=== PATIENT | female | born 1990 | race Caucasian/White ===

== ENCOUNTER 2017-05-15 13:46 | Emergency (ER) | payer MEDICAID, OTHER ==
[~2017-05-15] VITALS: Ht 172.7 cm; Wt 97.3 kg
[~2017-05-15 13:46] MED LIST: ONDA1TAB16 PO; TYLE3 PO; Z.0.NO CURRENT MEDS
[2017-05-15 13:51] VITALS: BP 151/103; PULSE 71; RESP 16; TEMP 98.9; O2SAT 99
[2017-05-15] MEDS ORDERED: KETOROLAC TROMETHAMINE 60 MG/2 ML (IM) VIAL IM ONE (14:00)
--- NOTE | 2017-05-15 14:01 | PD ---
HPI Chief Complaint: Oral / Dental Pain or Problem Time Seen by Provider: 13:57 Travel History International Travel<30 days: No Contact w/Intl Traveler<30days: No Traveled to known affect area: No History of Present Illness HPI 27-year-old female patient seen department for evaluation of dental pain 1 day. Long-standing history of dental decay and abscesses. She reports yesterday she developed pain within the left front incisor. She denies fever or chills. She reports mild gum and facial swelling. She reports the pain is constant, worse with eating and drinking, no alleviating factors, severity 7 out of 10. PFSH Past Medical History Asthma: Yes Anxiety: Yes Diminished Hearing: No Immunizations Current: Yes Tetanus Vaccination: Unknown Influenza Vaccination: Yes ?: Not LMP: NOW : 4 Para: 3 Miscarriage: 1 Past Surgical History Section: Yes (X3) Ear Surgery: Yes (BILATERAL EAR TUBES CHILD) Oral Surgery: Yes (TEETH EXTRACTION/ADENOID REMOVAL) Tonsillectomy: Yes Other Surgery: Yes (IUD) Social History Alcohol Use: No Tobacco Use: Yes (1 PPD) Substance Use: Yes (Marijuana - Occ ) Allergies-Medications (Allergen,Severity, Reaction): Coded Allergies: No Known Allergies (Verified , 05/15/17) Reported Meds & Prescriptions Reported Meds & Active Scripts Active Ibuprofen 800 Mg Tab 800 Mg PO Q8H PRN Augmentin (Amoxicillin-Clavulanate) 875-125 Mg Tab 1 Tab PO BID Review of Systems Except as stated in HPI: all other systems reviewed are Neg General / Constitutional: No: Fever Eyes: No: Visual changes HENT: No: Headaches Cardiovascular: No: Chest Pain or Discomfort Respiratory: No: Shortness of Breath Gastrointestinal: No: Abdominal Pain Physical Exam Narrative GENERAL: Well-nourished, well-developed patient. SKIN: Focused skin assessment warm/dry. HEAD: Normocephalic. EYES: No scleral icterus. No injection or drainage. MOUTH: Widespread dental decay. Tooth #9 decayed with surrounding gum erythema and mild swelling. NECK: Supple, trachea midline. No JVD or lymphadenopathy. No meningismus. CARDIOVASCULAR: Regular rate and rhythm without murmurs, gallops, or rubs. RESPIRATORY: Breath sounds equal bilaterally. No accessory muscle use. Data Data Last Documented VS Vital Signs Date Time Temp Pulse Resp B/P Pulse Ox O2 Delivery O2 Flow Rate FiO2 05/15/17 13:51 98.9 71 16 151/103 99 Orders Ketorolac Inj (Toradol Inj) (05/15/17 14:00) MDM Medical Decision Making Medical Screen Exam Complete: Yes Emergency Medical Condition: Yes Differential Diagnosis Physical abscess, dental caries, periodontal disease Narrative Course 27-year-old female with 1 day history of dental pain. On exam patient has widespread dental decay tooth #9 is decayed with surrounding gum erythema. Patient be treated for dental abscess. Diagnosis Primary Impression: Dental abscess Referrals: Dentist Additional Instructions: Make an appointment with the dentist for follow-up. Take antibiotics as prescribed. Return to the emergency department if you develop fever, chills, increased facial swelling. Scripts Chlorhexidine Gluconate (Mouth) Liq (Peridex Liq)0.12% Soln15 Ml SWISH-SPIT BID #473 ML Ref 0 Prov:Rhea Ortega 05/15/17 Ibuprofen 800 Mg Glf950 Mg PO Q8H PRN (Pain/Inflammation) #30 TAB Prov:Rhea Ortega 05/15/17 Amoxicillin-Clavulanate (Augmentin)875-125 Mg Tab1 Tab PO BID #20 TAB Prov:Rhea Ortega 05/15/17 Disposition: 01 DISCHARGE HOME Condition: Stable Rhea Ortega May 15, 2017 14:01
[2017-05-15] MEDS ORDERED: IBUP800T23 PO (14:02)
[2017-05-15] MEDS ORDERED: AUGM875T3 PO (14:02)
[2017-05-15] MEDS ORDERED: PERI0.126 SWISH-SPIT (14:10)
== END 2017-05-15 14:30 | disposition home or self-care (01) ==
LOC: PHEFT 13:46
DX: K04.7 Periapical abscess without sinus (principal); F17.210 Nicotine dependence, cigarettes, uncomplicated
CPT/HCPCS: 96372; 99284; J1885

== ENCOUNTER 2017-09-30 05:04 | Emergency (ER) | payer OTHER ==
[~2017-09-30] VITALS: Ht 170.2 cm; Wt 100.0 kg
[~2017-09-30 05:04] MED LIST changes: +AUGM875T3 PO; +IBUP1TAB7 PO; -ONDA1TAB16 PO; +PERI0.126 SWISH-SPIT; -TYLE3 PO; -Z.0.NO CURRENT MEDS
[2017-09-30 05:07] VITALS: BP 142/62; PULSE 78; RESP 20; TEMP 98.2; O2SAT 100
[2017-09-30] MEDS ORDERED: KETOROLAC TROMETHAMINE 60 MG/2 ML (IM) VIAL IM ONE (05:15)
--- NOTE | 2017-09-30 05:17 | PD ---
HPI Chief Complaint: Injury Time Seen by Provider: 05:06 Travel History International Travel<30 days: No Contact w/Intl Traveler<30days: No Traveled to known affect area: No History of Present Illness HPI Patient comes in complaining of right foot pain after kicking a door 3 times last night with her foot. Patient states that her boyfriend came home 3 hours late as he was hanging out with friends and she got mad causing her to kick the door 3 times. Patient states she took some Tylenol last night however when she woke up this morning to go the bathroom she tried to put her foot on the floor had intense pain in the dorsal aspect of her foot that radiates proximally. Patient denies anything making it better. Denies any numbness or tingling. Patient denies . States that she thought she may have done yesterday because she felt nauseous but took a home test that was negative. PFSH Past Medical History Asthma: Yes Anxiety: Yes Diminished Hearing: No Immunizations Current: Yes ?: Not LMP: 08/31/17 : 4 Para: 3 Miscarriage: 1 Past Surgical History Section: Yes (X3) Ear Surgery: Yes (BILATERAL EAR TUBES CHILD) Oral Surgery: Yes (TEETH EXTRACTION/ADENOID REMOVAL) Tonsillectomy: Yes Other Surgery: Yes (IUD) Social History Alcohol Use: No Tobacco Use: Yes (1 PPD) Substance Use: Yes (Marijuana - Occ ) Allergies-Medications (Allergen,Severity, Reaction): Coded Allergies: No Known Allergies (Verified Adverse Reaction, Unknown, 09/30/17) Reported Meds & Prescriptions Reported Meds & Active Scripts Active Naprosyn (Naproxen) 500 Mg Tab 500 Mg PO Q12HR PRN Review of Systems Except as stated in HPI: all other systems reviewed are Neg Physical Exam Narrative GENERAL: Well-developed, overly nourished, in no acute distress, and non-ill appearing. SKIN: Focused skin assessment warm and dry. HEAD: Atraumatic. Normocephalic. EYES: Pupils equal and round. EOMI. No scleral icterus. No injection or drainage. ENT: No nasal bleeding or discharge. Mucous membranes pink and moist. NECK: Trachea midline. Supple. No nuclear rigidity. CARDIOVASCULAR: Dorsal pulses 2+, intact, equal bilaterally. Capillary refill less than 2 seconds. RESPIRATORY: No accessory muscle use. No respiratory distress. MUSCULOSKELETAL: No obvious deformities. No clubbing. No cyanosis. No edema. Full range of motion. Ankle: Neagative anterior draw and Santillan test. Negative Dianne's sign. No laxity noted with passive inversion and eversion of BL ankles. Negative squeeze test. Pulses equal BL distal to injury. Capillary refill less than 2 seconds distal to injury and equal BL. Sensation equal BL 1st web space. FROM of toes distal to injury and equal BL. NV intact distal to injury and equal BL. Dorsal pulses equal BL. Patient reports tenderness to dorsal aspect of right foot over area of minimal soft tissue swelling. There is no crepitus. NEUROLOGICAL: Awake and alert. No obvious cranial nerve deficits. Motor grossly within normal limits. Normal speech. PSYCHIATRIC: Appropriate mood and affect; insight and judgment normal. Data Data Last Documented VS Vital Signs Date Time Temp Pulse Resp B/P (MAP) Pulse Ox O2 Delivery O2 Flow Rate FiO2 09/30/17 05:07 98.2 78 20 142/62 (88) 100 Orders Orders Foot, Complete (Ngl0zar) (09/30/17 ) Ice/Cold Pack (09/30/17 05:06) Ketorolac Inj (Toradol Inj) (09/30/17 05:15) Ondansetron Odt (Zofran Odt) (09/30/17 05:30) Splint Or Brace Apply/Monitor (09/30/17 05:43) Ed Discharge Order (09/30/17 05:43) Shoe Cast (09/30/17 ) MDM Medical Decision Making Medical Screen Exam Complete: Yes Emergency Medical Condition: Yes Differential Diagnosis Fracture, strain, contusion, dislocation Narrative Course The patient appears to have suffered a contusion of the extremity. There is no clinical evidence to suspect bony injury by exam. Radiographic examination revealed no fracture seen at this time. The patient has full range of motion on active and passive motions. There is no significant edema. There is no proximal or distal joint effusion. The distal extremity appears neurovascularly intact, without evidence of neurovascular injury nor compartment syndrome. Tendon exam also was intact. The patient was discharged on pain medication instructions and given warnings for vascular compromise. The patient is to follow up with their regular physician or legal recruiter. The patient agrees with plan. Patient in no obvious distress upon re-evaluation. All pertinent Radiology result(s) discussed with patient. Patient was asked if they wanted to speak to my attending, which the patient did not wish to do at this time. Any questions/ concerns in reference to patient diagnosis/condition discussed and clarified prior to patient's discharge. Reinforced sheer importance of close follow up with patient's primary physician or primary care clinic and/or legal recruiter. Instructed patient to return to ED immediately, if symptoms return/worsen. Patient showed understanding of above instructions. Further instructions and recommendations were detailed in discharge paperwork. Patient ambulated without difficulty out of ED at discharge with crutches. Diagnosis Primary Impression: Contusion of right foot, initial encounter Patient Instructions: Contusion in Adults (ED), Crutch Instructions (ED), General Instructions, Splint Care (DC) Additional Instructions: Follow-up with your primary care physician and/or legal recruiter in 3-5 days for reevaluation. Take all medication as prescribed. Apply ice to affected area 20 minutes per hour as needed for pain. Elevate affected foot when possible to decrease pain. Use Luis A wrap and postop shoe as needed for comfort. Use crutches for additional support as needed. Return to the emergency department if symptoms get worse. Med/Other Pt SpecificInfo: Prescription(s) given Scripts Naproxen (Naprosyn) 500 Mg Tab 500 MG PO Q12HR Y for PAIN SCALE 1 TO 10, #14 TAB 0 Refills Prov: Bronwyn Cortes MD 09/30/17 Disposition: 01 DISCHARGE HOME Condition: Stable Caesar Ospina Sep 30, 2017 05:17
[2017-09-30] MEDS ORDERED: ONDANSETRON ODT 4 MG TAB PO ONE (05:30)
--- NOTE | 2017-09-30 05:41 | RADRPT ---
EXAM DATE/TIME: 09/30/2017 05:15 [facility] COMPARISON: No previous studies available for comparison. INDICATIONS : Pain in right foot from kicking door. MEDICAL HISTORY : None. SURGICAL HISTORY : None. ENCOUNTER: Initial ACUITY: 1 day PAIN SCORE: 0/10 LOCATION: Right foot FINDINGS: Three view examination of the right foot demonstrates no dislocation, or fracture. There is some soft tissue swelling of the first toe. The tarsal bones appear intact. The interphalangeal and metatarso phalangeal joints are intact. The calcaneus is intact. Bony mineralization is normal. CONCLUSION: Unremarkable examination of the right foot except for soft tissue swelling of the first toe. Vadim Fields MD on September 30, 2017 at 5:39 Board Certified Radiologist. This report was verified electronically.
[2017-09-30] MEDS ORDERED: NAPR500 PO (05:47)
== END 2017-09-30 06:25 | disposition home or self-care (01) ==
LOC: NEPD 05:04
DX: S90.31XA Contusion of right foot, initial encounter (principal); J45.909 Unspecified asthma, uncomplicated; F41.9 Anxiety disorder, unspecified; F17.200 Nicotine dependence, unspecified, uncomplicated; W22.8XXA Striking against or struck by other objects, initial encounter
CPT/HCPCS: 73630; 96372; 99284; E0113; J1885; L3260

== ENCOUNTER 2017-12-07 22:20 | Emergency (ER) | payer OTHER ==
[2017-12-08 01:40] LABS: AUTOMATED NEUTROPHIL # 7.6 TH/MM3 (1.8-7.7); BASOPHIL # 0.1 TH/MM3 (0-0.2); BASOPHIL % 0.7 % (0.0-2.0); EOSINOPHIL # 0.4 TH/MM3 (0-0.4); EOSINOPHIL % 3.2 % (0.0-4.0); HEMATOCRIT 40.3 % (35.0-46.0); HEMO FLAGS DIFF FINAL; HEMOGLOBIN 13.7 GM/DL (11.6-15.3); LYMPH % 31.1 % (9.0-44.0); LYMPHOCYTE # 3.9 TH/MM3 (1.0-4.8); MEAN CELL VOLUME 91.2 FL (80.0-100.0); MEAN PLATELET VOLUME 9.1 FL (7.0-11.0); MONO % 4.7 % (0.0-8.0); MONOCYTE # 0.6 TH/MM3 (0-0.9); NEUT % 60.3 % (16.0-70.0); PLATELET COUNT 195 TH/MM3 (150-450); RED BLOOD COUNT 4.42 MIL/MM3 (4.00-5.30); RED CELL DISTRIBUTION WIDTH 13.7 % (11.6-17.2); WHITE BLOOD COUNT 12.5 TH/MM3 (4.0-11.0)
[2017-12-08 01:45] LABS: AMORPHOUS SEDIMENT, URINE RARE; BILIRUBIN, URINE NEG (NEG); BLOOD, URINE NEG (NEG); COMMENT (UR) CULT NOT INDICATED; CULTURE IF INDICATED CULT NOT INDICATED; GLUCOSE,URINE NEG (NEG); KETONE, URINE NEG (NEG); MUCUS URINE FEW /lpf (OCC); NITRITE,URINE NEG (NEG); SQUAMOUS EPITHELIAL CELL URINE 6 /hpf (0-5); URINE COLOR YELLOW (YELLW/STRAW); URINE LEUKOCYTE ESTERASE NEG (NEG)
[2017-12-08 01:57] LABS: ALBUMIN 3.3 GM/DL (3.4-5.0); ALT (GPT) 12 U/L (10-53); ANION GAP 4 MEQ/L (5-15); AST (GOT) 10 U/L (15-37); BLOOD UREA NITROGEN 13 MG/DL (7-18); CALCIUM 8.6 MG/DL (8.5-10.1); CHLORIDE 110 MEQ/L (98-107); CREATININE 0.77 MG/DL (0.50-1.00); GLOMERULAR FILTRATION RATE 89 ML/MIN (>89); GLUCOSE,RANDOM 86 MG/DL (74-106); LIPASE 169 U/L (73-393); POTASSIUM 3.8 MEQ/L (3.5-5.1); SODIUM (NA) 142 MEQ/L (136-145)
[2017-12-08 02:00] LABS: ALKALINE PHOSPHATASE 70 U/L (45-117); TOTAL BILIRUBIN ADULT 0.2 MG/DL (0.2-1.0); TOTAL PROTEIN 6.9 GM/DL (6.4-8.2)
[2017-12-08] MEDS: SODIUM CHLOR 0.9% 1000 ML INJ 1,000 ML IV (02:37)
[2017-12-08] MEDS: KETOROLAC TROMETHAMINE 30 MG/ML (IVP) VIAL IV PUSH (02:47)
[2017-12-08] MEDS: ONDANSETRON HCL 4 MG/2 ML VIAL IV (02:47)
[2017-12-08] MEDS: IOHEXOL 350 MG/ML 10 ML VIAL (for RAD DIAG) IVCONTRAST (03:18)
[2017-12-08] MEDS ORDERED: AZITHROMYCIN PWD FOR SUSP 1 GM PACKET PO (04:15)
[2017-12-08] MEDS: cefTRIAXone 250 MG VIAL IV (05:11)
[2017-12-08] MEDS: AZITHROMYCIN 250 MG TAB PO (05:40)
[2017-12-08] MEDS ORDERED: AZITHROMYCIN 250 MG TAB PO (09:00)
[2017-12-08 15:48] LABS: CHLAMYDIA PCR NOT DETECTED (NOT DETECT); NEISSERIA PCR NOT DETECTED (NOT DETECT)
== END 2017-12-08 05:47 | disposition home or self-care (01) ==
LOC: NEPC 22:20
DX: R10.31 Right lower quadrant pain (principal); N83.201 Unspecified ovarian cyst, right side; N76.0 Acute vaginitis; B96.89 Other specified bacterial agents as the cause of diseases classified elsewhere; F17.200 Nicotine dependence, unspecified, uncomplicated
CPT/HCPCS: 74177; 80053; 81001; 83690; 84703; 85025; 87210; 87491; 87591; 96361; 96374; 96375; 99285-25

== ENCOUNTER 2017-12-16 12:33 | Emergency (ER) | payer OTHER ==
[~2017-12-16] VITALS: Ht 170.2 cm; Wt 104.0 kg
[~2017-12-16 12:33] MED LIST changes: -AUGM875T3 PO; -IBUP1TAB7 PO; +METR-1 PO; +NAPR-810 PO; -PERI0.126 SWISH-SPIT
[2017-12-16 12:34] VITALS: BP 137/59; PULSE 89; RESP 18; TEMP 98.2; O2SAT 98
[2017-12-16] MEDS ORDERED: KETOROLAC TROMETHAMINE 60 MG/2 ML (IM) VIAL IM ONE (13:30)
[2017-12-16] MEDS ORDERED: ORPHENADRINE INJ 60 MG/2 ML AMP IM ONE (13:30)
--- NOTE | 2017-12-16 13:32 | PD ---
HPI Chief Complaint: Musculoskeletal Complaint Time Seen by Provider: 13:01 Travel History International Travel<30 days: No Contact w/Intl Traveler<30days: No Traveled to known affect area: No History of Present Illness HPI This is a 27-year-old female here with left upper and mid back pain times one day. She denies specific injury or trauma. The pain is worse with movement of the left upper extremity, twisting motion, deep breath and coughing. Pain is slightly relieved with OTC Naprosyn. She denies chest pain, shortness of breath , cough, fever or chills. Symptom severity is moderate. PFSH Past Medical History Asthma: Yes Anxiety: Yes Diminished Hearing: No Immunizations Current: Yes ?: Unknown : 5 Para: 4 Miscarriage: 1 Past Surgical History Section: Yes (x4) Ear Surgery: Yes (BILATERAL EAR TUBES CHILD) Oral Surgery: Yes (TEETH EXTRACTION/ADENOID REMOVAL) Tonsillectomy: Yes Other Surgery: Yes (IUD) Social History Alcohol Use: No Tobacco Use: Yes (11/17 PPD) Substance Use: Yes (Marijuana; last used 09/29/17) Allergies-Medications (Allergen,Severity, Reaction): Coded Allergies: No Known Allergies (Verified Allergy, Unknown, 12/16/17) Reported Meds & Prescriptions Reported Meds & Active Scripts Active EC-Naprosyn (Naproxen) 500 Mg Tabdr 500 Mg PO BID PRN Flagyl (Metronidazole) 500 Mg Tab 500 Mg PO BID 7 Days Review of Systems Except as stated in HPI: all other systems reviewed are Neg General / Constitutional: No: Fever Eyes: No: Visual changes HENT: No: Headaches Cardiovascular: No: Chest Pain or Discomfort Respiratory: No: Shortness of Breath Gastrointestinal: No: Abdominal Pain Genitourinary: No: Dysuria Musculoskeletal: No: Pain Skin: Positive Rash Physical Exam Narrative GENERAL: Alert and well-appearing 27-year-old female. No distress. SKIN: Warm and dry. Faint erythematous rash left upper back extending into the left shoulder. HEAD: Normocephalic. EYES: No injection or drainage. NECK: Supple, trachea midline. CARDIOVASCULAR: Regular rate and rhythm RESPIRATORY: Breath sounds equal bilaterally. No accessory muscle use. GASTROINTESTINAL: Abdomen soft, non-tender, nondistended. MUSCULOSKELETAL: No cyanosis, or edema. BACK: Tenderness to the soft tissue of the left upper thorax/trapezius muscle region. Pain is reproducible to palpation and range of motion of the left upper extremity. Without obvious deformity. No CVA tenderness. Data Data Last Documented VS Vital Signs Date Time Temp Pulse Resp B/P (MAP) Pulse Ox O2 Delivery O2 Flow Rate FiO2 12/16/17 12:34 98.2 89 18 137/59 (85) 98 Room Air Orders Orders Ketorolac Inj (Toradol Inj) (12/16/17 13:30) Orphenadrine Inj (Norflex Inj) (12/16/17 13:30) MDM Medical Decision Making Medical Screen Exam Complete: Yes Emergency Medical Condition: Yes Differential Diagnosis Thoracic muscle strain, herpes zoster, other Narrative Course 27-year-old female here with left mid upper back pain times one day. Pain is reproducible to palpation and range of motion the left upper extremity. Appears to be musculoskeletal. Of note patient does have a faint erythematous rash in this region which was concerning for herpes zoster. Patient reports this rash has been present for greater than 6 months, making herpes zoster seem very unlikely. She will be treated for thoracic muscle strain Diagnosis Primary Impression: Strain of muscle and tendon of back wall of thorax, initial encounter Referrals: Primary Care Physician Additional Instructions: This continue the use of Naprosyn and start ibuprofen. Take the medications as prescribed. Follow-up with her primary doctor. Return to emergency department if he developed new or worsening symptoms. Scripts Methocarbamol (Robaxin) 750 Mg Tab 750 MG PO QID for Muscle Spasm, #12 TAB 0 Refills Prov: Rhea Ortega 12/16/17 Ibuprofen (Ibuprofen) 800 Mg Tab 800 MG PO Q6HR Y for PAIN, #40 TAB 0 Refills Prov: Rhea Ortega 12/16/17 Disposition: 01 DISCHARGE HOME Condition: Stable Rhea Ortega Dec 16, 2017 13:32
[2017-12-16] MEDS ORDERED: ROBA750T PO (13:43)
[2017-12-16] MEDS ORDERED: IBUP1TAB7 PO (13:43)
== END 2017-12-16 14:14 | disposition home or self-care (01) ==
LOC: NEPK 12:33
DX: S29.012A Strain of muscle and tendon of back wall of thorax, initial encounter (principal); F17.200 Nicotine dependence, unspecified, uncomplicated; X58.XXXA Exposure to other specified factors, initial encounter
CPT/HCPCS: 96372; 99284; J1885; J2360

== ENCOUNTER 2018-02-01 19:16 | Emergency (ER) | payer OTHER ==
[~2018-02-01 19:16] MED LIST changes: +IBUP1TAB7 PO; +ROBA750T PO
[2018-02-01 19:40] VITALS: BP 146/57; PULSE 69; RESP 18; TEMP 98; O2SAT 100
--- NOTE | 2018-02-01 22:06 | PD ---
HPI Chief Complaint: Abdominal Pain Time Seen by Provider: 19:40 Travel History International Travel<30 days: No Contact w/Intl Traveler<30days: No Traveled to known affect area: No History of Present Illness HPI 27-year-old female presents to emergency department for evaluation of lower abdominal cramping 1 week. Denies vaginal bleeding or discharge. States that her site is sensitive. Denies fever chills. Has urinary frequency and urgency. No other symptoms to report [facility] Past Medical History Asthma: Yes Anxiety: Yes Diminished Hearing: No Immunizations Current: Yes ?: Unknown : 5 Para: 4 Miscarriage: 1 Past Surgical History Section: Yes (x4) Ear Surgery: Yes (BILATERAL EAR TUBES CHILD) Oral Surgery: Yes (TEETH EXTRACTION/ADENOID REMOVAL) Tonsillectomy: Yes Other Surgery: Yes (IUD) Social History Alcohol Use: No Tobacco Use: Yes (11/17 PPD) Substance Use: Yes (Marijuana; last used 09/29/17) Allergies-Medications (Allergen,Severity, Reaction): Coded Allergies: No Known Allergies (Verified Allergy, Unknown, 12/16/17) Reported Meds & Prescriptions Reported Meds & Active Scripts Active Robaxin (Methocarbamol) 750 Mg Tab 750 Mg PO QID Ibuprofen 800 Mg Tab 800 Mg PO Q6HR PRN EC-Naprosyn (Naproxen) 500 Mg Tabdr 500 Mg PO BID PRN Flagyl (Metronidazole) 500 Mg Tab 500 Mg PO BID 7 Days Review of Systems Except as stated in HPI: all other systems reviewed are Neg Physical Exam Narrative Well-nourished female patient ambulatory with a non-ataxic gait. She appears nontoxic and without distress. She has even respirations. Normal heart rate. Moves all extremities. Speaks clearly. Data Data Last Documented VS Vital Signs Date Time Temp Pulse Resp B/P (MAP) Pulse Ox O2 Delivery O2 Flow Rate FiO2 02/01/18 19:40 98.0 69 18 146/57 (86) 100 Orders Orders Ed Urine Pregnancytest Poc (02/01/18 19:43) MDM Medical Decision Making Medical Screen Exam Complete: Yes Emergency Medical Condition: Yes Medical Record Reviewed: Yes Differential Diagnosis UTI versus STD versus colitis versus diverticulitis Narrative Course 27-year-old female presents to emergency department for evaluation lower abdominal pain. Patient appears well and without distress. Workup is initiated. Prior to bed placement, patient uses to leave. AMA: The risks of leaving against medical advice without further evaluation treatment were discussed with the patient. These risks include cardiac dysfunction, cardiac dysrhythmia, possible heart attack, possible stroke or . The patient indicated understanding of these risks and appeared to have the capacity to make this decision. Diagnosis Primary Impression: Lower abdominal pain Disposition: 07 AGAINST MEDICAL ADVICE Condition: Stable Belgica Hernandez Feb 01, 2018 22:06
== END 2018-02-01 21:22 | disposition left against medical advice (07) ==
LOC: NED 19:16
DX: R10.30 Lower abdominal pain, unspecified (principal); J45.909 Unspecified asthma, uncomplicated; F41.9 Anxiety disorder, unspecified; F17.200 Nicotine dependence, unspecified, uncomplicated; F12.90 Cannabis use, unspecified, uncomplicated
CPT/HCPCS: 99281

== ENCOUNTER 2018-03-09 16:38 | Emergency (ER) | payer OTHER ==
[~2018-03-09] VITALS: Ht 170.2 cm; Wt 90.5 kg
[2018-03-09 16:58] VITALS: BP 130/63; PULSE 78; RESP 16; TEMP 97.8; O2SAT 98
--- NOTE | 2018-03-09 18:53 | PD ---
HPI Chief Complaint: Back/ Neck Pain or Injury Time Seen by Provider: 17:45 Travel History International Travel<30 days: No Contact w/Intl Traveler<30days: No Traveled to known affect area: No History of Present Illness HPI 28-year-old G6 A1 P4 approximately 10 week female presents to the emergency room for evaluation of right lower back pain that radiates into her buttocks for the past day. Patient states went from lying to standing this morning and developed significant pain. Pain is localized to the right SI joint and radiates into the buttocks. Worsened with any range of motion and especially ambulation. She has not taken anything for symptoms. No IV drug use , loss of bowel or bladder control, lower extremity paresthesias, or saddle anesthesia. She denies dysuria, urgency, frequency, or any vaginal bleeding. Patient states she had an ultrasound at 6 weeks at an outside hospital that showed pole. She has not followed up with an [facility]. She has not started vitamins. PFSH Past Medical History Asthma: Yes Anxiety: Yes Diminished Hearing: No Immunizations Current: Yes ?: LMP: 02/10/18 : 5 Para: 4 Miscarriage: 1 Past Surgical History Section: Yes (x4) Ear Surgery: Yes (BILATERAL EAR TUBES CHILD) Oral Surgery: Yes (TEETH EXTRACTION/ADENOID REMOVAL) Tonsillectomy: Yes Other Surgery: Yes (IUD) Social History Alcohol Use: No Tobacco Use: Yes (1/2 PPD) Substance Use: Yes (Marijuana; last used 09/29/17) Allergies-Medications (Allergen,Severity, Reaction): Coded Allergies: No Known Allergies (Verified Allergy, Unknown, 03/09/18) Reported Meds & Prescriptions Reported Meds & Active Scripts Active No Active Prescriptions or Reported Medications Review of Systems Except as stated in HPI: all other systems reviewed are Neg Physical Exam Narrative GENERAL: Well-nourished, well-developed female in no acute distress. Afebrile. Ambulatory. Moving easily on the bed when distracted. SKIN: Focused skin assessment warm/dry. HEAD: Normocephalic. EYES: No scleral icterus. No injection or drainage. NECK: Supple, trachea midline. No JVD or lymphadenopathy. CARDIOVASCULAR: Regular rate and rhythm without murmurs, gallops, or rubs. RESPIRATORY: Breath sounds equal bilaterally. No accessory muscle use. GASTROINTESTINAL: Abdomen soft, non-tender, nondistended. No CVA tenderness. BACK: No CVA tenderness. No rash. No point tenderness on palpation of the spine. Mild tenderness to palpation over the right SI joint. Negative straight leg raise bilaterally. Data Data Last Documented VS Vital Signs Date Time Temp Pulse Resp B/P (MAP) Pulse Ox O2 Delivery O2 Flow Rate FiO2 03/09/18 16:58 97.8 78 16 130/63 (85) 98 Orders Orders Urinalysis - C+S If Indicated (03/09/18 18:23) Labs Laboratory Tests Test 03/09/18 18:50 Urine Color YELLOW Urine Turbidity CLEAR Urine pH 6.0 Urine Specific [place] 1.024 Urine Protein TRACE mg/dL Urine Glucose (UA) NEG mg/dL Urine Ketones NEG mg/dL Urine Occult Blood NEG Urine Nitrite NEG Urine Bilirubin NEG Urine Urobilinogen 2.0 MG/DL Urine Leukocyte Esterase NEG Urine WBC 1 /hpf Urine Squamous Epithelial Cells 7 /hpf Urine Mucus FEW /lpf Microscopic Urinalysis Comment CULT NOT INDICATED MDM Medical Decision Making Medical Screen Exam Complete: Yes Emergency Medical Condition: Yes Medical Record Reviewed: Yes Differential Diagnosis Muscle strain, spasm, round ligament pain, abdominal pain in , spondylolisthesis Narrative Course 28-year-old G6 A1 P4 approximately 10 week female presents to the emergency room for evaluation of right lower back pain that radiates into her buttocks for the past day. Patient states pain started upon going from a lying to standing position. Worse with any range of motion. She has not taken anything for symptoms. No red flag symptoms. No abdominal pain. No vaginal bleeding. Bedside ultrasound shows intrauterine with a heart rate of 179 bpm. UA is negative for blood or infection. Sounds musculoskeletal in nature. No indication for imaging. Patient was instructed to take vitamins and Tylenol for pain. Told to follow-up with [facility] within 2 weeks. She understands and agrees to plan. Diagnosis Primary Impression: Right-sided back pain Qualified Codes: M54.5 - Low back pain Referrals: [facility] Worker Additional Instructions: Rest and drink plenty of fluids. Take Tylenol as directed, as needed for pain. Apply ice to the affected area for 20 minutes at a time, as needed for pain and swelling. Follow-up with a primary care physician. Return to the emergency room for worsening symptoms. Med/Other Pt SpecificInfo: Prescription(s) given Scripts No Active Prescriptions or Reported Meds Disposition: 01 DISCHARGE HOME Condition: Stable Denise Pond Mar 09, 2018 18:53
[2018-03-09 19:44] LABS: BILIRUBIN, URINE NEG (NEG); BLOOD, URINE NEG (NEG); GLUCOSE,URINE NEG (NEG); KETONE, URINE NEG (NEG); MUCUS URINE FEW /lpf (OCC); NITRITE,URINE NEG (NEG); SQUAMOUS EPITHELIAL CELL URINE 7 /hpf (0-5); URINE COLOR YELLOW (YELLW/STRAW); URINE LEUKOCYTE ESTERASE NEG (NEG)
== END 2018-03-09 19:54 | disposition home or self-care (01) ==
LOC: NEPK 16:38
DX: O26.891 Other specified pregnancy related conditions, first trimester (principal); M54.5 Low back pain; O99.331 Smoking (tobacco) complicating pregnancy, first trimester; F17.200 Nicotine dependence, unspecified, uncomplicated; Z3A.10 10 weeks gestation of pregnancy
CPT/HCPCS: 81001; 99283

== ENCOUNTER 2018-04-08 19:31 | Emergency (ER) | payer OTHER ==
[~2018-04-08] VITALS: Ht 170.2 cm; Wt 98.0 kg
[2018-04-08 19:40] VITALS: BP 109/56; PULSE 78; RESP 16; TEMP 98.1; O2SAT 98
--- NOTE | 2018-04-08 22:20 | PD ---
HPI Chief Complaint: Fall Time Seen by Provider: 22:04 Travel History International Travel<30 days: No Contact w/Intl Traveler<30days: No Traveled to known affect area: No History of Present Illness HPI 28-year-old female , approximately 15 weeks , here for evaluation of right lower back pain after a reported trip and fall that occurred yesterday evening. The patient reports that she tripped over one of her child's toys and landed forward. She did not hit her head or lose consciousness. She complains of persistent right lower back pain that she describes as sharp/pressure, constant, worse with movements and ambulation. She denies abdominal pain. No vaginal bleeding. She states that she has her first [facility] appointment for this on 04/27/18. She has been taking vitamins, but has not yet received any care. PFSH Past Medical History Asthma: Yes Anxiety: Yes Diminished Hearing: No Immunizations Current: Yes Tetanus Vaccination: Unknown Influenza Vaccination: Yes ?: LMP: 15 WEEKS 1 DAY. : 5 Para: 4 Miscarriage: 1 Past Surgical History Section: Yes (x4) Ear Surgery: Yes (BILATERAL EAR TUBES CHILD) Oral Surgery: Yes (TEETH EXTRACTION/ADENOID REMOVAL) Tonsillectomy: Yes Other Surgery: Yes (IUD) Social History Alcohol Use: No Tobacco Use: Yes (/2 PPD) Substance Use: Yes (Marijuana; last used 09/29/17) Allergies-Medications (Allergen,Severity, Reaction): Coded Allergies: No Known Allergies (Verified Allergy, Unknown, 04/08/18) Reported Meds & Prescriptions Reported Meds & Active Scripts Active Keflex (Cephalexin) 500 Mg Cap 500 Mg PO Q12H 7 Days Review of Systems Except as stated in HPI: all other systems reviewed are Neg Physical Exam Narrative GENERAL: Well-developed, well-nourished, awake, alert, no apparent distress. SKIN: Focused skin assessment warm/dry. HEAD: Atraumatic. Normocephalic. EYES: Pupils equal and round. No scleral icterus. No injection or drainage. ENT: Mucous membranes pink and moist. NECK: Trachea midline. No JVD. CARDIOVASCULAR: Regular rate and rhythm. No murmur appreciated. RESPIRATORY: No accessory muscle use. Clear to auscultation. Breath sounds equal bilaterally. GASTROINTESTINAL: Abdomen soft, non-tender, nondistended. MUSCULOSKELETAL: No obvious deformities. No clubbing. No cyanosis. No edema. Moderate right SI joint tenderness. No midline vertebral step-off or tenderness. No CVA tenderness. Bilateral lower extremities without obvious deformity, with normal range of motion. Bilateral upper extremities are also without deformities and with normal range of motion. NEUROLOGICAL: Awake and alert. No obvious cranial nerve deficits. Motor grossly within normal limits. Normal speech. PSYCHIATRIC: Appropriate mood and affect; insight and judgment normal. Data Data Last Documented VS Vital Signs Date Time Temp Pulse Resp B/P (MAP) Pulse Ox O2 Delivery O2 Flow Rate FiO2 04/08/18 19:40 98.1 78 16 109/56 (73) 98 Orders Orders Urinalysis - C+S If Indicated (04/08/18 22:14) Urine Culture (04/08/18 22:20) Cephalexin (Keflex) (04/08/18 23:15) Ed Discharge Order (04/08/18 23:10) Labs Laboratory Tests Test 04/08/18 22:20 Urine Color YELLOW Urine Turbidity HAZY Urine pH 6.0 Urine Specific [place] 1.008 Urine Protein NEG mg/dL Urine Glucose (UA) NEG mg/dL Urine Ketones NEG mg/dL Urine Occult Blood NEG Urine Nitrite POS Urine Bilirubin NEG Urine Urobilinogen LESS THAN 2.0 MG/DL Urine Leukocyte Esterase NEG Urine RBC 1 /hpf Urine WBC 2 /hpf Urine Squamous Epithelial Cells 6 /hpf Urine Bacteria MOD /hpf Urine Mucus FEW /lpf Microscopic Urinalysis Comment CULTURE INDICATED MDM Medical Decision Making Medical Screen Exam Complete: Yes Emergency Medical Condition: Yes Differential Diagnosis Low back strain/contusion, vertebral fracture less likely, pelvic fracture unlikely Narrative Course Vital signs reviewed and are within normal limits. Bedside transabdominal ultrasound was performed by me and shows an IUP with a heart rate of 179 bpm. Bedside FAST was also performed by me and is negative for free fluid in the abdomen and pelvis. UA: Hazy, positive nitrites, moderate bacteria, few mucus. Patient was started on Keflex 500 mg twice daily for her UTI in . She is ambulatory to the restroom, however walks with a limp favoring her right side. She is able to ambulate without assistance with a brisk gait. She is stable for discharge home with outpatient follow-up with her [facility] physician as scheduled. She was advised on when to return to the emergency department. She verbalizes understanding and agreement with plan. Procedures Procedure Narrative Bedside transabdominal ultrasound: Using the curvilinear ultrasound probe, a bedside transabdominal ultrasound was performed by me and shows an IUP with heart rate of 179 bpm. Bedside FAST: Using the curvilinear ultrasound probe a bedside FAST was performed by me and is negative for free fluid in the abdomen and pelvis. Diagnosis Primary Impression: UTI in Qualified Codes: O23.42 - Unspecified infection of urinary tract in , second trimester Additional Impression: Contusion of lower back Qualified Codes: S30.0XXA - Contusion of lower back and pelvis, initial encounter Referrals: Data Collection Specialist 3 days Additional Instructions: Follow-up with your [facility] physician as scheduled. Return to the emergency department for worsening symptoms or any other concerns. Scripts Cephalexin (Keflex) 500 Mg Cap 500 MG PO Q12H for Infection for 7 Days, #14 CAP 0 Refills Prov: Boaz Kc MD 04/08/18 Disposition: 01 DISCHARGE HOME Condition: Stable Boaz Kc MD April 08, 2018 22:20
[2018-04-08 22:41] LABS: BACTERIA, URINE MOD /hpf; BILIRUBIN, URINE NEG (NEG); BLOOD, URINE NEG (NEG); GLUCOSE,URINE NEG (NEG); KETONE, URINE NEG (NEG); MUCUS URINE FEW /lpf (OCC); NITRITE,URINE POS (NEG); SQUAMOUS EPITHELIAL CELL URINE 6 /hpf (0-5); URINE COLOR YELLOW (YELLW/STRAW); URINE LEUKOCYTE ESTERASE NEG (NEG)
[2018-04-08] MEDS ORDERED: CEPH-460 PO (23:10)
[2018-04-08] MEDS ORDERED: CEPHALEXIN MONOHYDRATE 500 MG CAP PO ONE (23:15)
== END 2018-04-08 23:21 | disposition home or self-care (01) ==
LOC: NEPD 19:31
DX: O9A.212 Injury, poisoning and certain other consequences of external causes complicating pregnancy, second trimester (principal); O99.512 Diseases of the respiratory system complicating pregnancy, second trimester; O99.342 Other mental disorders complicating pregnancy, second trimester; F41.9 Anxiety disorder, unspecified; O26.892 Other specified pregnancy related conditions, second trimester; J45.909 Unspecified asthma, uncomplicated; O23.42 Unspecified infection of urinary tract in pregnancy, second trimester; B96.20 Unspecified Escherichia coli [E. coli] as the cause of diseases classified elsewhere; F17.210 Nicotine dependence, cigarettes, uncomplicated; Z3A.15 15 weeks gestation of pregnancy; W18.09XA Striking against other object with subsequent fall, initial encounter; Y92.009 Unspecified place in unspecified non-institutional (private) residence as the place of occurrence of the external cause
CPT/HCPCS: 81001; 87077; 87086; 87186; 99283

== ENCOUNTER → 2018-05-12 | Outpatient (CLI) | payer OTHER ==
[~2018-05-12] MED LIST changes: +CEPH-460 PO; -IBUP1TAB7 PO; -METR-1 PO; -NAPR-810 PO; -ROBA750T PO
== END ==
LOC: HPND 10:13
PROVIDERS: ATTEND Obstetrics & Gynecology
DX: O35.1XX0 Maternal care for (suspected) chromosomal abnormality in fetus, not applicable or unspecified (principal); O09.32 Supervision of pregnancy with insufficient antenatal care, second trimester; O34.211 Maternal care for low transverse scar from previous cesarean delivery; O99.332 Smoking (tobacco) complicating pregnancy, second trimester
CPT/HCPCS: 76811

== ENCOUNTER 2018-09-19 13:21 | Inpatient (IN) ==
[2018-09-19] MEDS ORDERED: ceFAZolin 2 GM Premix Inj 2 GM/50 ML PIGGYBACK IV.SIG PRN (13:46)
--- NOTE | 2018-09-19 13:54 | P.HPOB ---
History of Present Illness Primary Care Physician: No Primary Care Physician Dr. Fidel Brush Chief Complaint: Contractions pain History of Present Illness: Patient is 28-year-old white female at 39 weeks previous x4 history presents complaining of regular painful contractions getting closer together throughout the day. She believes they are now about 5 minutes apart. heart rate tracing is reactive and we are seeing contractions on the monitor palpating them, she was scheduled in 2 days for repeat section tubal ligation and her tubal papers are signed and present. She understands risk and benefits of tubal is considered permanent yet less on her percent effective with a 1 and 300 failure rate Weeks Gestation:: 39 Para: 4 (4 C-sections) : 6 Total # of Miscarriage(s): 1 Review of Systems All other systems reviewed negative except as stated in HPI [facility] - History History Provided By: Patient - Medical History Medical History: Medical History (Last Updated 09/19/18 @ 13:51 by Phong Santos MD) Sinusitis Uterine fibroid in antepartum period - Surgical History Surgical History: Surgical History (Last Updated 08/11/18 @ 19:14 by Phong Santos MD) Previous section - Tobacco History Second Hand Smoke Exposure: Yes Tobacco Use In Past 30 Days: Yes Smoking Status: Current every day smoker Tobacco Type: Cigarettes - Alcohol History How Often Do You Have a Drink Containing Alcohol: Never - Substance Use History Substance History: No History of Abuse, Past History - Substance Use Type Marijuana Route Used: Inhalation Frequency: Last smoked pot 6 weeks ago - Travel History History of Recent Travel: No Recent Travel in the [place] Within the Last 8 Weeks: No Recent Travel Out of the Country Within the Last 8 Weeks: No Medications and Allergies Active Medications: Active Medications Citric Acid/Sodium Citrate (Sodium Citrate/Citric Acid Liq) 30 ml PO HAMMER OPERATOR IBETH Stop: 09/23/18 13:59 Cefazolin Sodium/Dextrose (Ancef 2 Gm Premix Inj) 2 gm in 50 mls @ 100 mls/hr IV.SIG HAMMER OPERATOR PRN PRN Reason: ON-CALL Stop: 09/23/18 13:45 Lactated Ringer's (Lr 1000 Ml Inj) 1,000 mls @ 2,000 mls/hr IV.SIG .Q30M ONE Stop: 09/19/18 14:15 Lactated Ringer's (Lr 1000 Ml Inj) 1,000 mls @ 150 mls/hr IV.CONT .Q6H40M IBETH Allergies Allergy/AdvReac Type Severity Reaction Status Date / Time No Known Allergies Allergy Verified 09/13/18 21:10 Home Medications Medication Instructions Recorded Confirmed Type PNV #[id number] 1 tab PO BID 06/29/18 09/13/18 History ranitidine HCl [Zantac 75] 150 mg PO DAILY 08/11/18 09/13/18 History Exam Vital signs: Vital Signs 09/19/18 13:32 Temperature 98.6 F Pulse Rate 95 H Blood Pressure 125/66 Narrative: GENERAL: Well-nourished, well-developed patient. SKIN: Warm and dry. HEAD: Normocephalic and atraumatic. EYES: No scleral icterus. No injection or drainage. ENT: No nasal drainage noted. Mucous membranes pink. Airway patent. NECK: Supple, trachea midline. No JVD. CARDIOVASCULAR: Regular rate and rhythm without murmurs, gallops, or rubs. RESPIRATORY: Breath sounds equal bilaterally. No accessory muscle use. BREASTS: Bilateral exam showed no masses , no retractions, no nipple discharge. ABDOMEN/GI: Abdomen soft, non-tender, bowel sounds present, no rebound, no guarding Gravid to [38-] weeks size Fundal Height: [38-] GENITOURINARY: External Genitalia: intact and normal in appearance BUS glands: [-] Cervix: [post-] Dilatation: [1-] Effacement: [40-] Station: [-3] Presentation: [vtx-] Membranes: [intact Uterine Contractions: [q 5 min-] FHT's: Category: [1-] Baseline: [133-] Reactive: [R-] Variability: [mod-] Decels: [-0] EXTREMITIES: No cyanosis or edema. BACK: Nontender without obvious deformity. No CVA tenderness. NEUROLOGICAL: Awake and alert. Motor and sensory grossly within normal limits. Five out of 5 muscle strength in all muscle groups. Normal speech. Caprini VTE Risk Assessment Caprini VTE Risk Assessment: No/Low Risk (score <= 1) Caprini Risk Assessment Model: Point Value = 1 Point Value = 2 Point Value = 3 Point Value = 5 Age 41-60 Minor surgery BMI > 25 kg/m2 Swollen legs Varicose veins or History of unexplained or recurrent spontaneous Oral contraceptives or hormone replacement Sepsis (< 1 month) Serious lung disease, including pneumonia (< 1 month) Abnormal pulmonary function Acute myocardial infarction Congestive heart failure (< 1 month) History of inflammatory bowel disease Medical patient at bed rest Age 61-74 Arthroscopic surgery Major open surgery (> 45 min) Laparoscopic surgery (> 45 min) Malignancy Confined to bed (> 72 hours) Immobilizing plaster cast Central venous access Age >= 75 History of VTE Family history of VTE Factor V Leiden Prothrombin [id number] Lupus anticoagulant Anticardiolipin antibodies Elevated serum homocysteine Heparin-induced thrombocytopenia Other congenital or acquired thrombophilia Stroke (< 1 month) Elective arthroplasty Hip, pelvis, or leg fracture Acute spinal cord injury (< 1 month) Prophylaxis Regimen: Total Risk Factor Score Risk Level Prophylaxis Regimen 0-1 Low Early ambulation 2 Moderate Order ONE of the following: *Sequential Compression Device (SCD) *Heparin 5000 units SQ BID 3-4 Higher Order ONE of the following medications: *Heparin 5000 units SQ TID *Enoxaparin/Lovenox 40 mg SQ daily (WT < 150 kg, CrCl > 30 mL/min) *Enoxaparin/Lovenox 30 mg SQ daily (WT < 150 kg, CrCl > 10-29 mL/min) *Enoxaparin/Lovenox 30 mg SQ BID (WT < 150 kg, CrCl > 30 mL/min) AND/OR *Sequential Compression Device (SCD) 5 or more Highest Order ONE of the following medications: *Heparin 5000 units SQ TID (Preferred with Epidurals) *Enoxaparin/Lovenox 40 mg SQ daily (WT < 150 kg, CrCl > 30 mL/min) *Enoxaparin/Lovenox 30 mg SQ daily (WT < 150 kg, CrCl > 10-29 mL/min) *Enoxaparin/Lovenox 30 mg SQ BID (WT < 150 kg, CrCl > 30 mL/min) AND *Sequential Compression Device (SCD) Assessment and Plan - Diagnosis (1) 39 weeks gestation of Code(s): Z3A.39 - 39 weeks gestation of Status: Acute (2) History of Code(s): Z98.891 - History of uterine scar from previous surgery Status: Acute (3) Uterine contractions during Code(s): O62.2 - Other uterine inertia Status: Acute - Plan This multiparous patient who has had for in the past now is a 39 weeks presents complaining of contraction pain that is every 5 minutes. Baby is a reactive NST. She is scheduled in 2 days for tubal ligation and will proceed with that today.
[2018-09-19] MEDS ORDERED: Citric Acid/Sodium Citrate Liq 30 ML UDC PO SCH (14:00)
[2018-09-19 14:06] LABS: Baso % (Auto) 0.3 % (0.0-2.0); Eos # (Auto) 0.1 th/mm3 (0.0-0.4); Eos % (Auto) 0.7 % (0.0-4.0); Hematocrit 35.8 % (35.0-46.0); Hemoglobin 12.1 gm/dL (11.6-15.3); Lymph # (Auto) 2.8 th/mm3 (1.0-4.8); Lymph % (Auto) 22.7 % (9.0-44.0); Mean Corpuscular HGB Conc 33.7 % (32.0-36.0); Mean Corpuscular Hemoglobin 32.1 pg (27.0-34.0); Mean Platelet Volume 8.9 fL (7.0-11.0); Mono # (Auto) 0.6 th/mm3 (0.0-0.9); Mono % (Auto) 4.9 % (0.0-8.0); Neut # (Auto) 8.8 th/mm3 (1.8-7.7); Neut % (Auto) 71.4 % (16.0-70.0); Platelet Count 286 th/mm3 (150-450); Red Blood Count 3.77 mil/mm3 (4.00-5.30); Red Cell Distribution Width 13.4 % (11.6-17.2); White Blood Count 12.3 th/mm3 (4.0-11.0)
[2018-09-19 14:19] LABS: Amphetamine Screen,Urine Neg (Neg); Barbiturate Screen,Urine Neg (Neg); Cannabinoid Screen,Urine Pos (Neg); Cocaine Screen,Urine Neg (Neg)
[2018-09-19 14:22] LABS: Opiate Screen,Urine Neg (Neg)
[2018-09-19 14:34] LABS: Amorphous Sediment,Urine Occasional /hpf; Bacteria,Urine Rare /hpf; Bilirubin,Urine Negative (Negative); Clarity,Urine Hazy (Clear); Color,Urine Yellow (Yellw/Straw); Glucose,Urine (UA) Negative (Negative); Leukocyte Esterase,Urine Negative (Negative); Mucus,Urine Few /lpf (Occasional); Nitrite,Urine Negative (Negative); Specific Gravity,Urine 1.024 (1.002-1.035); Squamous Epithelial Cell,Urine 5 /hpf (0-5)
[2018-09-19] MEDS ORDERED: Morphine Sulfate PF Inj 5 MG/10 ML Ampul ONE (14:37)
[2018-09-19] MEDS ORDERED: Zolpidem Tartrate 5 MG Tablet PO PRN (16:05)
[2018-09-19] MEDS ORDERED: Oxytocin 30 Units/500ml Premix 30 UNITS/500 ML BAG IV.SIG ONE (16:05)
[2018-09-19] MEDS ORDERED: Acetaminophen 325 MG Tablet PO PRN (16:05)
--- NOTE | 2018-09-19 16:15 | P.OP ---
- Preoperative Diagnosis (1) 39 weeks gestation of (2) Uterine contractions during (3) Previous section complicating - Postoperative Diagnosis (1) 39 weeks gestation of (2) Previous section complicating (3) Uterine contractions during Date of procedure: 09/19/18 (39-week intrauterine for previous C- sections now for repeat section due to uterine contractions) Procedure: Repeat low transverse section bilateral tubal ligation Anesthesia: regional Surgeon: Phong Santos MD [employer]: Maryellen Morales Estimated blood loss (mL): 500 IV fluids (mL): 1,000 Urine output (mL): 100 Operation and Findings: Patient taken operating room and placed in supine position operating up after adequate spinal anesthesia. Previous Pfannenstiel incision was excised out cast -off. Incision carried to the fascia sharply and the fascia dissected laterally Bovie cautery. Then the rectus muscle was reflected off of the fascia and the perineal cavity entered in the midline. Palpation of the uterus removed several small bands of adhesions that were easily cauterized. Bladder blade placed lower his incision and the lower uterine segment placed on the bladder blade. A transverse hysterotomy was made extended bluntly bilaterally and clear fluid noted. The female infant was delivered at 3:10 PM, weight 30- 65 g 7 /9, delayed cord clamping noted and then cord blood obtained. Baby handed to waiting nursery and resus staff. The placenta was manually extracted without difficulty uterus exteriorized in the usual fashion. The hysterotomy closed in a running layer of 0 chromic followed by imbricating suture same hemostasis achieved with several stick ties along the incision line. The uterus was packed off and the tubal was then performed the right tube was normal followed to fimbriated and elevated hemostat passed through the mesosalpinx to plain catgut sutures pulled through that window and the tube was tied fore and aft and the intervening segment was cut out and sent to pathology. The left tube was adhesed to the broad ligament and mike-uterine tissue, only a small window of this tube was able to be excised out in the similar fashion however we had some bleeding from that so the hemostat and the clamp across the ends of each tube and it was oversewn with stick ties of 2-0 Vicryl to achieve hemostasis but a small segment of that tube was also removed and sent to pathology. The uterus is elevated blood suctioned the cul-de-sac gutters the uterus replaced the peritoneal cavity without difficulty. The parietal peritoneum closed running layer 2-0 Vicryl. With were not able to reapproximate the rectus muscle because it was so far was not feasible to really try and so that. The fascia was closed in a running layer of 0 Vicryl. The wound was copiously irrigated with antibiotic laced irrigation , no bleeders noted good hemostasis seen and the space and subcutaneous tissues reapproximated using running 3-0 plain catgut suture. The skin closed with subcuticular 3-0 Monocryl stitch. The 7-day silver dressing was placed on this area since it will be down and the pannus area and this bandage will stay on for 1week. The sponge and needle count correct x2 and the patient taken recovery in stable condition. EBL 500 cc.
[2018-09-19] MEDS ORDERED: Naloxone Inj 0.4 MG/ML Vial IV.PUSH PRN (17:56)
[2018-09-19] MEDS ORDERED: Oxytocin 30 Units/500ml Premix 30 UNITS/500 ML BAG IV.SIG PRN (21:05)
[2018-09-20] MEDS: Senna/Docusate Sodium 8.6/50 MG Tablet PO PRN ×2 (03:21→18:44)
[2018-09-20 07:06] LABS: Baso % (Auto) 0.3 % (0.0-2.0); Eos % (Auto) 0.2 % (0.0-4.0); Hematocrit 33.6 % (35.0-46.0); Hemoglobin 11.5 gm/dL (11.6-15.3); Lymph # (Auto) 2.9 th/mm3 (1.0-4.8); Lymph % (Auto) 17.3 % (9.0-44.0); Mean Corpuscular HGB Conc 34.2 % (32.0-36.0); Mean Corpuscular Hemoglobin 31.6 pg (27.0-34.0); Mean Corpuscular Volume 92.5 fL (80.0-100.0); Mean Platelet Volume 9.8 fL (7.0-11.0); Mono # (Auto) 0.8 th/mm3 (0.0-0.9); Mono % (Auto) 4.7 % (0.0-8.0); Neut # (Auto) 13.2 th/mm3 (1.8-7.7); Neut % (Auto) 77.5 % (16.0-70.0); Platelet Count 299 th/mm3 (150-450); Red Blood Count 3.63 mil/mm3 (4.00-5.30); Red Cell Distribution Width 13.2 % (11.6-17.2); White Blood Count 16.9 th/mm3 (4.0-11.0)
--- NOTE | 2018-09-20 08:32 | P.PNOB ---
Subjective Post op day: 1 Interval history: Postoperative day number 1. AFVSS overnight. Pain well-controlled. Incision not draining. Decreased lochia. Denies dysuria. No breast tenderness. She is feeding the baby via bottle. Appetite good. No nausea or vomiting. + flatus. No bowel movement. Ambulating well. Denies calf pain, shortness of breath, or cough. She complains of constant vaginal burning and itching since last night. She is tried cleaning the area and using baby wipes which has made the pain worse. She denies dysuria or abnormal vaginal discharge. Objective Vital Signs/I&O: Vital Signs 09/19/18 13:32 09/19/18 13:45 09/19/18 16:12 Temperature 98.6 F 97.6 F Pulse Rate 95 H 65 Respiratory Rate 20 18 Blood Pressure 125/66 110/55 L 09/19/18 16:30 09/19/18 16:45 09/19/18 17:00 Temperature Pulse Rate 77 101 H 75 Respiratory Rate 20 21 20 Blood Pressure 125/65 143/76 H 122/60 09/19/18 17:14 09/19/18 17:45 09/19/18 19:05 Temperature 99.0 F 97.6 F Pulse Rate 81 78 75 Respiratory Rate 18 16 19 Blood Pressure 122/66 119/76 113/72 09/20/18 00:00 09/20/18 00:30 09/20/18 03:10 Temperature 98.4 F 98.0 F Pulse Rate 73 75 Respiratory Rate 17 18 Blood Pressure 99/63 L 119/60 108/65 09/20/18 07:30 Temperature 98.1 F Pulse Rate 74 Respiratory Rate 22 Blood Pressure 108/67 Intake & Output 09/19/18 09/20/18 09/20/18 18:59 06:59 18:59 Intake Total 100 / 100 Balance 100 / 100 Intake: IV 100 / 100 Ofirmev Inj 1,000 mg In 100 ml 100 / 100 @ 400 mls/hr IV.SIG Q8H [facility] Rx# :[id number] Result Diagrams: 09/20/18 05:37 Objective Remarks: GENERAL: Well-nourished, well-developed patient. CARDIOVASCULAR: Regular rate and rhythm without murmurs, gallops, or rubs. RESPIRATORY: Breath sounds equal bilaterally. No accessory muscle use. ABDOMEN/GI: Abdomen soft, non-tender, bowel sounds present. Incision: Clean, dry and intact. Fundus: Firm, non-tender at umbilicus. GENITOURINARY: Light to moderate bleeding. No obvious erythema or discharge noted. EXTREMITIES: No cyanosis or edema, non-tender, without signs of DVT. Medications and IVs: Active Medications Acetaminophen (Tylenol) 650 mg PO Q6H PRN PRN Reason: PAIN SCALE 1 TO 2 Citric Acid/Sodium Citrate (Sodium Citrate/Citric Acid Liq) 30 ml PO DAIRY [facility] Stop: 09/23/18 13:59 Last Admin: 09/19/18 14:33 Dose: 30 ml Diphenhydramine HCl (Benadryl) 50 mg PO Q6H PRN PRN Reason: MILD TO MODERATE ITCHING Stop: 09/20/18 17:55 Diphenhydramine HCl (Benadryl Inj) 25 mg IV.PUSH Q6H PRN PRN Reason: MILD TO MODERATE ITCHING Stop: 09/20/18 17:55 Last Admin: 09/19/18 18:24 Dose: 25 mg Diphtheria/Pertussis/Tetanus Vacc (Boostrix Vaccine Inj) 0.5 ml IM .ONCE ONE Stop: 09/20/18 16:01 Fluconazole (Diflucan) 150 mg PO ONCE ONE Stop: 09/20/18 08:10 Cefazolin Sodium/Dextrose (Ancef 2 Gm Premix Inj) 2 gm in 50 mls @ 100 mls/hr IV.SIG DAIRY FARMWORKER PRN PRN Reason: ON-CALL Stop: 09/23/18 13:45 Lactated Ringer's (Lr 1000 Ml Inj) 1,000 mls @ 150 mls/hr IV.CONT .Q6H40M [facility] Last Admin: 09/20/18 04:44 Dose: Not Given Oxytocin (Pitocin 30 Units/Ns 500 Ml Premix) 30 units in 500 mls @ 100 mls/hr IV.SIG UNSCH PRN PRN Reason: Heavy bleeding Last Admin: 09/19/18 22:38 Dose: 100 mls/hr Lactated Ringer's (Lr 1000 Ml Inj) 1,000 mls @ 100 mls/hr IV.CONT .Q10H [facility] Stop: 09/20/18 17:04 Last Admin: 09/20/18 03:22 Dose: 100 mls/hr Ibuprofen (Motrin) 800 mg PO Q8H PRN PRN Reason: cramping Ketorolac Tromethamine (Toradol Inj) 30 mg IM Q6H PRN PRN Reason: SEE LABEL COMMENTS Stop: 09/20/18 16:04 Last Admin: 09/20/18 07:59 Dose: 30 mg Measles/Mumps/Rubella Vaccine Live (M-M-R Ii Vaccine Inj) 0.5 ml SQ .ONCE ONE Stop: 09/20/18 16:01 Miconazole Nitrate (Micatin 2% Cream) 1 applicatio TOPICAL BID IBETH Miscellaneous Information ([facility] [place] Nursing Information) 1 each OTHER UNSCH PRN PRN Reason: SEE LABEL COMMENTS Stop: 09/20/18 17:55 Miscellaneous Information ([facility] [place] Nursing Information) 1 each OTHER UNSCH PRN PRN Reason: SEE LABEL COMMENTS Stop: 09/20/18 17:55 Naloxone HCl (Narcan Inj) 0.4 mg IV.PUSH UNSCH PRN PRN Reason: SEE LABEL COMMENTS Stop: 09/20/18 17:55 Ondansetron HCl (Zofran Inj) 4 mg IV.PUSH Q6H PRN PRN Reason: NAUSEA OR VOMITING Oxycodone/Acetaminophen (Percocet 5/325 Mg) 1 tab PO Q4H PRN PRN Reason: PAIN SCALE 3 TO 5 Oxycodone/Acetaminophen (Percocet 5/325 Mg) 2 tab PO Q4H PRN PRN Reason: PAIN SCALE 6 TO 10 Last Admin: 09/20/18 03:22 Dose: 2 tab Senna/Docusate Sodium (Viki-Colace) 2 tab PO Q12H PRN PRN Reason: CONSTIPATION Last Admin: 09/20/18 03:21 Dose: 2 tab Simethicone (Mylicon Chew) 80 mg PO QID PRN PRN Reason: FLATULENCE Sodium Chloride (Ns Flush) 2 ml IV.FLUSH BID IBETH Last Admin: 09/19/18 23:35 Dose: Not Given Sodium Chloride (Ns Flush) 2 ml IV.FLUSH PRN PRN PRN Reason: FLUSH AFTER USING IV ACCESS Zolpidem Tartrate (Ambien) 5 mg PO HS PRN PRN Reason: INSOMNIA Assessment and Plan - Diagnosis (1) 39 weeks gestation of Code(s): Z3A.39 - 39 weeks gestation of Status: Acute Plan: 28 y/o female who is POD# 1 s/p CXN. -Continue routine care. -Percocet and Motrin PRN pain. -Encouraged OOB. Advised pelvic rest for 6 wks. Will need a f/u appt. in 1 wk for incision check. -Re: ctrl, she would like to consider her options. -D/c in 1-2 more days. (2) Vaginal discomfort Code(s): N94.9 - Unspecified condition associated with female genital organs and menstrual cycle Status: Acute Plan: Diflucan 150 mg PO once Micatin 2% cream BID Continue to monitor symptoms. - Plan wdw OB attending, Dr. Santos
[2018-09-20] MEDS ORDERED: Fluconazole 100 MG Tablet PO ONE (08:45)
[2018-09-20] MEDS: Miconazole 2% Cream 15 GM Tube TOPICAL SCH (09:51)
[2018-09-20] MEDS ORDERED: Diphtheria/Tetanus/Pertussis Vaccine Inj 0.5 ML Syringe IM ONE (16:00)
[2018-09-20] MEDS ORDERED: Measles/Mumps/Rubella Vaccine Inj 0.5 ML Vial SQ ONE (16:00)
[2018-09-20] MEDS: Simethicone 80 MG Chew Tablet PO PRN (18:44)
[2018-09-20] MEDS ORDERED: Influenza (Quadrivalent) Vaccine 0.5 ML Syringe IM ONE (21:00)
[2018-09-21] MEDS: Simethicone 80 MG Chew Tablet PO PRN (03:45)
[2018-09-21] MEDS: Miconazole 2% Cream 15 GM Tube TOPICAL SCH ×2 (05:09→11:04)
--- NOTE | 2018-09-21 08:23 | P.PNOB ---
Subjective Post op day: 2 Interval history: Postoperative day number 2. AFVSS overnight. Pain well-controlled. Incision not draining. Decreased lochia. Denies dysuria. No breast tenderness. She is feeding the baby via bottle. Appetite good. No nausea or vomiting. + flatus. multiple bowel movements. Ambulating well. Denies calf pain, shortness of breath , or cough. Otherwise, she is doing well this morning and has no other complaints. Her vaginal itching resolved overnight with application of miconazole cream. Objective Vital Signs/I&O: Vital Signs 09/20/18 12:00 09/20/18 20:00 09/21/18 07:40 Temperature 98.1 F 98.4 F 97.8 F Pulse Rate 77 79 106 H Respiratory Rate 14 20 18 Blood Pressure 103/54 L 109/67 95/67 L Result Diagrams: 09/20/18 05:37 Objective Remarks: GENERAL: Well-nourished, well-developed patient. CARDIOVASCULAR: Regular rate and rhythm without murmurs, gallops, or rubs. RESPIRATORY: Breath sounds equal bilaterally. No accessory muscle use. ABDOMEN/GI: Abdomen soft, non-tender, bowel sounds present. Incision: Clean, dry and intact. Fundus: Firm, non-tender at umbilicus. GENITOURINARY: Light to moderate bleeding. EXTREMITIES: No cyanosis or edema, non-tender, without signs of DVT. Medications and IVs: Active Medications Acetaminophen (Tylenol) 650 mg PO Q6H PRN PRN Reason: PAIN SCALE 1 TO 2 Citric Acid/Sodium Citrate (Sodium Citrate/Citric Acid Liq) 30 ml PO [employer] ADVISOR [facility] Stop: 09/23/18 13:59 Last Admin: 09/19/18 14:33 Dose: 30 ml Cefazolin Sodium/Dextrose (Ancef 2 Gm Premix Inj) 2 gm in 50 mls @ 100 mls/hr IV.SIG [employer] ADVISOR PRN PRN Reason: ON-CALL Stop: 09/23/18 13:45 Lactated Ringer's (Lr 1000 Ml Inj) 1,000 mls @ 150 mls/hr IV.CONT .Q6H40M [facility] Last Admin: 09/20/18 04:44 Dose: Not Given Oxytocin (Pitocin 30 Units/Ns 500 Ml Premix) 30 units in 500 mls @ 100 mls/hr IV.SIG UNSCH PRN PRN Reason: Heavy bleeding Last Admin: 09/19/18 22:38 Dose: 100 mls/hr Ibuprofen (Motrin) 800 mg PO Q8H PRN PRN Reason: cramping Last Admin: 09/21/18 03:44 Dose: 800 mg Miconazole Nitrate (Micatin 2% Cream) 1 applicatio TOPICAL BID [facility] Last Admin: 09/21/18 05:09 Dose: 1 applicatio Ondansetron HCl (Zofran Inj) 4 mg IV.PUSH Q6H PRN PRN Reason: NAUSEA OR VOMITING Oxycodone/Acetaminophen (Percocet 5/325 Mg) 1 tab PO Q4H PRN PRN Reason: PAIN SCALE 3 TO 5 Oxycodone/Acetaminophen (Percocet 5/325 Mg) 2 tab PO Q4H PRN PRN Reason: PAIN SCALE 6 TO 10 Last Admin: 09/21/18 08:02 Dose: 2 tab Senna/Docusate Sodium (Viki-Colace) 2 tab PO Q12H PRN PRN Reason: CONSTIPATION Last Admin: 09/20/18 18:44 Dose: 2 tab Simethicone (Mylicon Chew) 80 mg PO QID PRN PRN Reason: FLATULENCE Last Admin: 09/21/18 03:45 Dose: 80 mg Sodium Chloride (Ns Flush) 2 ml IV.FLUSH BID [facility] Last Admin: 09/20/18 21:19 Dose: Not Given Sodium Chloride (Ns Flush) 2 ml IV.FLUSH PRN PRN PRN Reason: FLUSH AFTER USING IV ACCESS Zolpidem Tartrate (Ambien) 5 mg PO HS PRN PRN Reason: INSOMNIA Assessment and Plan - Diagnosis (1) 39 weeks gestation of Code(s): Z3A.39 - 39 weeks gestation of Status: Acute Plan: 28 y/o female who is POD# 2 s/p CXN. -Continue routine care. -Percocet and Motrin PRN pain. -Encouraged OOB. Advised pelvic rest for 6 wks. Will need a f/u appt. in 1 wk for incision check. -Re: ctrl, she had a tubal ligation performed -D/c today. (2) Vaginal discomfort Code(s): N94.9 - Unspecified condition associated with female genital organs and menstrual cycle Status: Resolved Plan: Resolved overnight. s/p Diflucan 150 mg PO once Micatin 2% cream BID wdw Dr. Murrieta
[2018-09-21] MEDS ORDERED: Diphtheria/Tetanus/Pertussis Vaccine Inj 0.5 ML Syringe IM ONE (11:45)
== END 2018-09-21 12:30 | disposition home or self-care (01) ==
LOC: HOBED 13:21 → H2E 13:52 → H1EA 17:19
PROVIDERS: ADMIT Obstetrics & Gynecology Maternal & Fetal Medicine; ATTEND Obstetrics & Gynecology Maternal & Fetal Medicine